=== PATIENT | female | born 2000 | race Caucasian/White ===

== ENCOUNTER 2018-12-14 21:16 | Emergency (ER) | payer SELFPAY ==
[~2018-12-14] VITALS: Ht 154.9 cm; Wt 46.3 kg
[2018-12-14 21:35] VITALS: BP_SYST 133
[2018-12-15 00:30] VITALS: BP_SYST 120
== END 2018-12-15 00:30 | disposition home or self-care (01) ==
LOC: SED 21:16
DX: S01.511A Laceration without foreign body of lip, initial encounter (principal); R03.0 Elevated blood-pressure reading, without diagnosis of hypertension; W09.8XXA Fall on or from other playground equipment, initial encounter; Y93.44 Activity, trampolining; Y92.89 Other specified places as the place of occurrence of the external cause; Y99.8 Other external cause status
CPT/HCPCS: 81025; 99282